=== PATIENT | male | born 1980 | race Caucasian/White ===

== ENCOUNTER 2022-03-28 16:22 | Emergency (ER) | payer OTHER ==
[2022-03-28 16:51] VITALS: BP 156/94; PULSE 104; TEMP 98.2; BMI 29.5
[2022-03-28] MEDS ORDERED: KETOROLAC TROMETHAMINE 30 MG/1 ML VIAL IM ONE (17:07)
[2022-03-28] MEDS ORDERED: KETOROLAC TROMETHAMINE 30 MG/1 ML VIAL ONE (17:18)
== END 2022-03-28 18:16 | disposition home or self-care (01) ==
LOC: JERFT 16:22
PROC: 3E0233Z Introduction of Anti-inflammatory into Muscle, Percutaneous Approach (ICD-10-PCS; principal; 2022-03-28)
DX: M72.2 Plantar fascial fibromatosis (principal)
CPT/HCPCS: 99284-25

== ENCOUNTER 2022-09-03 11:27 | Emergency (ER) | payer OTHER ==
[2022-09-03 11:35] VITALS: BP 156/97; RESP 19; TEMP 98.4; BMI 31.3
[2022-09-03 11:36] VITALS: PULSE 79
[2022-09-03] MEDS ORDERED: METOCLOPRAMIDE HCL 10 MG TABLET (FP) PO ONE ×2 (11:56→12:03)
[2022-09-03] MEDS ORDERED: ACETAMINOPHEN/CAFFEINE/BUTALBITAL 1 TAB PO ONE (11:56)
[2022-09-03] MEDS ORDERED: ACETAMINOPHEN 500 MG TABLET (FP) ONE (12:03)
[2022-09-03] MEDS ORDERED: ACETAMINOPHEN/CAFFEINE/BUTALBITAL 1 TAB ONE (12:04)
[2022-09-03] MEDS ORDERED: ACETAMINOPHEN 325 MG TABLET (FP) ONE (12:07)
[2022-09-03] MEDS ORDERED: ACETAMINOPHEN 325 MG TABLET (FP) PO ONE (12:07)
[2022-09-03] MEDS: ACETAMINOPHEN 500 MG TABLET (FP) PO ONE ×2 (12:32→12:33)
== END 2022-09-03 14:39 | disposition home or self-care (01) ==
LOC: JER 11:27
DX: M54.12 Radiculopathy, cervical region (principal)
CPT/HCPCS: 70450-TC; 72125-TC; 99284-25